=== PATIENT | female | born 1980 | race Hispanic/Latino ===

== ENCOUNTER 2020-03-06 14:29 | Emergency (ER) | payer OTHER ==
[~2020-03-06] VITALS: Ht 172.7 cm; Wt 71.2 kg
[2020-03-06 14:40] VITALS: TEMP 98.9
[2020-03-06 15:25] VITALS: BP 136/74
== END 2020-03-06 15:25 | disposition home or self-care (01) ==
LOC: ED 14:29
DX: T88.1XXA Other complications following immunization, not elsewhere classified, initial encounter (principal); R11.2 Nausea with vomiting, unspecified; T50.B95A Adverse effect of other viral vaccines, initial encounter; Y92.89 Other specified places as the place of occurrence of the external cause
CPT/HCPCS: 99281

== ENCOUNTER 2020-07-13 08:21 | Emergency (ER) | payer OTHER ==
[~2020-07-13] VITALS: Ht 152.4 cm; Wt 54.0 kg
[2020-07-13 09:21] VITALS: BP 117/70; TEMP 98.2
== END 2020-07-13 09:21 | disposition home or self-care (01) ==
LOC: ED 08:21
DX: H00.015 Hordeolum externum left lower eyelid (principal)
CPT/HCPCS: 99281; 99282